=== PATIENT | female | born 1990 | race Caucasian/White ===

== ENCOUNTER 2017-11-08 10:36 | Emergency (ER) | payer BC ==
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
[2017-11-08] MEDS ORDERED: HYDROcodone/ACETAMIN 5-325 MG* 1 TAB PO ONE (13:49)
--- NOTE | 2017-11-08 14:04 | RAD ---
Indication: Low back pain. 5 views of lumbar spine are reviewed. The vertebral bodies appear normal in height. Disc spaces all well-preserved. Pedicles appear intact. Intervertebral foramen appear patent. IMPRESSION: No fracture of the lumbar spine is noted.
== END 2017-11-08 14:20 | disposition home or self-care (01) ==
LOC: UCCORT 10:36
DX: M53.3 Sacrococcygeal disorders, not elsewhere classified (principal); M54.5 Low back pain; E66.9 Obesity, unspecified; Z88.8 Allergy status to other drugs, medicaments and biological substances
CPT/HCPCS: 72110; 99202; G0463